=== PATIENT | male | born 1980 | race Native Hawaiian/Other Pacific Islander ===

== ENCOUNTER 2018-06-29 22:38 | Emergency (ER) | payer BC ==
--- NOTE | 2018-06-30 02:40 | ED PDOC ---
HPI: Influenza Time Seen by Provider: 06/30/18 01:30 Chief Complaint: Cough, Cold, Congestion Chief Complaint (Provider): Cough, Cold, Congestion History Per: Patient Exam Limitations: no limitations Have you had recent travel within the past 21 days to any of: Yes Other Location:: [facility] Additional complaint(s):: 38 y/o who recently returned from a trip to the [facility] on the presents to the ED complaining of sore throat and horse voice. Patient reports he went to urgent care today and they started him on Azithromycin and Prednisone for bronchitis. Patient states she still has cough and is concerned because he developed jaw pain from coughing. Patient states that while waiting in the ED however, jaw pain subsided. Past Medical History Reviewed: Historical Data, Nursing Documentation, Vital Signs Vital Signs: Last Vital Signs Temp 98.7 F 06/29/18 23:29 Pulse 111 H 06/29/18 23:29 Resp BP 137/97 H 06/29/18 23:29 Pulse Ox 98 06/29/18 23:29 - Family History Family History: States: Unknown Family Hx - Home Medications Home Medications: Ambulatory Orders Medication Instructions Recorded Benzonatate [Tessalon Perle] 100 mg PO TID #20 capsule 06/30/18 - Allergies Allergies/Adverse Reactions: Allergies Allergy/AdvReac Type Severity Reaction Status Date / Time No Known Allergies Allergy Verified 06/29/18 23:34 Review of Systems ROS Statement: Except As Marked, All Systems Reviewed And Found Negative ENT: Positive for: Mouth Pain (jaw), Throat Pain Physical Exam - Reviewed Nursing Documentation Reviewed: Yes Vital Signs Reviewed: Yes - Physical Exam Appears: Positive for: Well, Non-toxic, No Acute Distress Head Exam: Positive for: ATRAUMATIC, NORMAL INSPECTION, NORMOCEPHALIC Skin: Positive for: Normal Color, Warm, DRY Eye Exam: Positive for: EOMI, Normal appearance, PERRL ENT: Positive for: Normal ENT Inspection Neck: Positive for: Normal, Painless ROM Cardiovascular/Chest: Positive for: Regular Rate, Rhythm. Negative for: Murmur Respiratory: Positive for: Normal Breath Sounds. Negative for: Respiratory Distress Gastrointestinal/Abdominal: Positive for: Normal Exam, Soft. Negative for: Tenderness Back: Positive for: Normal Inspection Extremity: Positive for: Normal ROM. Negative for: Pedal Edema, Deformity Neurological/Psych: Positive for: Awake, Alert, Normal Tone. Negative for: Motor/Sensory Deficits Medical Decision Making Medical Decision Making: Time: 01:41 A/P: 38 y/o with likely URI possible Influenza. However, patient is outside of treatment window for Tamiflu. Will treat symptomatically. * Ibuprofen 600 mg * CXR 02:47 Upon provider reevaluation patient reports improvement of symptoms and will be discharged home. Return precautions provided. Patient advised to follow up with PMD. Vitals improved. Scribe Attestation: Documented by Mook Davis, acting as a scribe Heron Wiseman MD. Provider Scribe Attestation: All medical record entries made by the Scribe were at my direction and personally dictated by me. I have reviewed the chart and agree that the record accurately reflects my personal performance of the history, physical exam, medical decision making, and the department course for this patient. I have also personally directed, reviewed, and agree with the discharge instructions and disposition. - ECG O2 Sat by Pulse Oximetry: 98 Disposition - Clinical Impression Clinical Impression: Cough - Disposition Referrals: [facility] [Outside] Disposition: Routine/Home Disposition Time: 02:47 Condition: IMPROVED Additional Instructions: RODRICK BAKER, thank you for letting us take care of you today. Your provider was Patrick Wiseman MD and you were treated for COUGH, JAW PAIN. The emergency medical care you received today was directed at your acute symptoms. If you were prescribed any medication, please fill it and take as directed. It may take several days for your symptoms to resolve. Return to the Emergency Department if your symptoms worsen, do not improve, or if you have any other problems. Please contact your doctor or call one of the physicians/clinics you have been referred to that are listed on the Patient Visit Information form that is included in your discharge packet. Bring any paperwork you were given at discharge with you along with any medications you are taking to your follow up visit. Our treatment cannot replace ongoing medical care by a primary care provider outside of the emergency department. Thank you for allowing the [facility] team to be part of your care today. If you had an X-Ray or CT scan: A Radiologist will review the ED reading if any change in treatment is needed we will contact you. If you had a blood, urine, or wound culture: It will take several days for the results, if any change in treatment is needed we will contact you. If you had an STI test: It will take 48 hours for the results. Please call after 1 week if you have not heard back. Prescriptions: Benzonatate [Tessalon Perle] 100 mg PO TID #20 capsule Instructions: Acute Bronchitis Forms: [employer] (Swedish)
[2018-06-30 02:53] VITALS: BP 119/79; PULSE 75; RESP 16; TEMP 98
[2018-06-30 02:56] VITALS: O2SAT 98
--- NOTE | 2018-06-30 08:25 | CARD ---
APPROVED REPORT Date of service: 06/30/2018 EKG Measurement Heart [id number] <Conclusion> Normal sinus rhythm with sinus arrhythmia Normal ECG
--- NOTE | 2018-06-30 12:42 | RAD ---
HISTORY: cough COMPARISON: None available TECHNIQUE: Chest PA and lateral FINDINGS: LUNGS: No focal consolidation. Please note that chest x-ray has limited sensitivity for the detection of pulmonary masses. PLEURA: No significant pleural effusion identified. No definite pneumothorax . CARDIOVASCULAR: Heart size appears within normal limits. No atherosclerotic calcification present. OSSEOUS STRUCTURES: No acute osseous abnormality identified. VISUALIZED UPPER ABDOMEN: Unremarkable. OTHER FINDINGS: None. IMPRESSION: No focal consolidation.
== END 2018-06-30 02:54 | disposition home or self-care (01) ==
LOC: H.ER 22:38
DX: R05 Cough (principal)